=== PATIENT | female | born 1965 | race Caucasian/White ===

== ENCOUNTER 2023-12-05 20:33 | Emergency (ER) | payer BC, SELFPAY ==
--- NOTE | ~2023-12-05 | XR_ITS ---
EXAMINATION: XR chest 2V DATE: 12/05/2023 21:55 INDICATION: Chest pain. Shortness of breath. Dizziness. TECHNIQUE: Frontal and lateral views of the chest were obtained. COMPARISON: CT abdomen 05/13/2005 FINDINGS: There is mild atelectasis in left lower lung zone. No pleural effusion or pneumothorax. The heart size is normal. IMPRESSION: 1. Mild atelectasis in left lower lung zone. Reviewed, dictated and finalized at location A.
--- NOTE | 2023-12-05 20:35 | ECG_ITS ---
Test Date: 2023-12-05 20:39:39 Measurements Intervals [place] Rate: 92 P: 33 UT: 158 QRS: 18 QRSD: 89 T: 37 QT: 346 QTc: 429 Interpretive Statements SINUS RHYTHM LOW QRS VOLTAGE IN PRECORDIAL LEADS [QRS DEFLECTION < 1.0 mV IN CHEST LEADS] OTHERWISE NORMAL ELECTROCARDIOGRAM No previous ECG available for comparison Electronically Signed On 12-07-2023 12:55:24 CDT by Chente Rodriguez M.D.
[2023-12-05 20:50] VITALS: BP 161/83; PULSE 81; RESP 20; TEMP 36.4; O2SAT 99
[2023-12-05 21:00] LABS: Basophils Percent Auto 0.5 % (0.2-1.2); Eosinophils Absolute Auto 0.1 K/mm3 (0-0.3); Eosinophils Percent Auto 1.2 % (0-4.4); Hematocrit 39.9 % (37.0-47.0); Hemoglobin 12.9 g/dL (12.0-15.0); Immature Granulocyte Absolute 0.02 K/mm3 (0.00-0.031); Immature Granulocyte Percent A 0.2 % (0-0.5); Lymphocytes Percent Auto 19.3 % (18.3-44.2); Mean Corpuscular HGB Conc 32.3 g/dl (32-36); Mean Corpuscular Hemoglobin 27.5 pg (26-34); Mean Corpuscular Volume 85.1 fl (80-100); Mean Platelet Volume 11.1 fl (7.4-10.4); Monocytes Absolute Auto 0.4 K/mm3 (0.1-0.6); Monocytes Percent Auto 5.1 % (2.6-8.5); Neutrophils Absolute Auto 6.1 K/mm3 (1.3-6.7); Neutrophils Percent Auto 73.7 % (45.5-73.1); Platelet Count Result 242 k/mm3 (150-375); Red Blood Count 4.69 M/mm3 (4.2-5.4); Red Cell Distribution Width 14.6 % (11.5-14.5); White Blood Count 8.3 K/mm3 (4.5-10.0)
[2023-12-05 21:10] LABS: Alanine Aminotransferase 17 U/L (6-35); Alkaline Phosphatase 91 U/L (38-126); Anion Gap 13 mmol/L (4-12); Aspartate Amino Transferase 18 U/L (14-36); Bilirubin,Total 0.9 mg/dL (0.2-1.3); Blood Urea Nitrogen 13 mg/dL (7-17); Calcium 9.2 mg/dL (8.4-10.2); Carbon Dioxide 24 mmol/L (22-30); Chloride 102 mmol/L (98-107); Estimated CRCL calculation 81 ml/min; Estimated Glomerular Filt Rate 58; Glucose 99 mg/dL (65-110); Lipase 59 U/L (23-300); Potassium 4.1 mmol/L (3.4-5.0); Sodium 139 mmol/L (137-145)
[2023-12-05 21:11] LABS: INR 1.1; Partial Thromboplastin Time 30.6 Seconds (22.3-36.8); Prothrombin Time 14.3 Seconds (11.1-14.7)
[2023-12-05 21:21] LABS: Troponin I < 0.012 ng/mL (0.000-0.034)
[2023-12-06 01:58] VITALS: BP 131/66; PULSE 85; RESP 16; TEMP 36.4; O2SAT 98
[2023-12-06] MEDS: ASPIRIN 81 MG CHEWABLE TABLET 324 MG PO (02:56)
[2023-12-06 03:25] LABS: Troponin I < 0.012 ng/mL (0.000-0.034)
--- NOTE | 2023-12-06 03:37 | ED.CHESTPAIN ---
HPI - Chest Pain General Chief Complaint: Chest Pain Stated Complaint: chest pain Time Seen by Provider: 12/06/23 02:19 History of Present Illness HPI narrative: Patient is a 57-year-old female who presents to the emergency department this evening complaining of chest pain that is been ongoing for the past 2 weeks. Patient has not noticed anything that brings on the pain. Denies any similar symptoms in the past denies any cardiac history. Denies any nausea or vomiting, admits to mild shortness of breath but denies any additional symptoms or concerns at this time. Related Data Home Medications Medication Instructions Recorded Confirmed doxycycline hyclate 100 mg capsule 100 mg PO DAILY 05/16/19 exenatide microspheres 2 mg/0.65 2 mg subcut WEEKLY 05/16/19 mL subcutaneous pen injector (Bydureon) furosemide 40 mg tablet 40 mg PO QAM 05/16/19 glimepiride 4 mg tablet 4 mg PO QAM 05/16/19 insulin lispro 100 unit/mL 10 unit subcut DAILY 05/16/19 subcutaneous pen (Humalog KwikPen (U-100) Insulin) lisinopril 40 mg tablet 40 mg PO DAILY 05/16/19 metformin 500 mg tablet 500 mg PO DAILY 05/16/19 pravastatin 40 mg tablet 40 mg PO DAILY 05/16/19 Allergies Allergy/AdvReac Type Severity Reaction Status Date / Time amoxicillin Allergy Unknown Rash Verified 12/05/23 20:34 Review of Systems Review of Systems: All systems are reviewed and are negative unless stated otherwise in the HPI. [facility] Past Medical History Medical History Diabetes High cholesterol Hypertension Surgical History Surgical History History of 2 sections 1989, 1993 History of cholecystectomy Social History Social History Smoking status: Former smoker Alcohol intake: never Exam Narrative: General: Alert, awake, afebrile, in no acute distress. HEENT: PERRL, no rhinorrhea, no post nasal drip, oropharynx clear. Cardiovascular: Regular rate and rhythm, no murmurs, rubs or gallops, no peripheral edema. Respiratory: Clear to auscultation bilaterally, no tachypnea, no wheezing, no rhonchi, no rubs, no respiratory distress. Abdomen: Soft, nontender, nondistended, no rebound, no guarding, no peritoneal signs. Musculoskeletal: No joint swelling or deformity, normal muscle tone. Skin: No rashes or petechia, no signs of infection. Neurological: Alert and oriented to person, place, and time. Follows all commands. No focal deficits, speech is clear and fluent. Course Vital Signs Vital signs: Vital Signs Temperature 97.5 F L 12/05/23 20:50 Pulse Rate 81 12/05/23 20:50 Respiratory Rate 20 12/05/23 20:50 Blood Pressure 161/83 H 12/05/23 20:50 Pulse Oximetry 99 12/05/23 20:50 Oxygen Delivery Room Air 12/05/23 20:50 Temperature 97.6 F 12/06/23 01:58 Pulse Rate 85 12/06/23 01:58 Respiratory Rate 16 12/06/23 01:58 Blood Pressure 131/66 12/06/23 01:58 Pulse Oximetry 98 12/06/23 01:58 Oxygen Delivery Room Air 12/05/23 20:50 MDM - Chest Pain MDM Narrative Medical decision making narrative: The patient was evaluated by myself in the emergency department. History is obtained from patient who is an independent historian and physical exam was performed. External medical records were reviewed at this time. IV was established and pertinent tests were ordered. EKG was obtained which revealed sinus rhythm at a rate of 80 beats per minute. No ST changes, T wave inversions or evidence of acute ischemia. EKG was independently interpreted by me and is currently pending official cardiology read. Laboratory results obtained revealing no acute process. Two sets of troponins were obtained and both noted to be negative. Imaging studies obtained included CXR which was independently interpreted by me revealing no acute process, wh
[2023-12-06 04:04] VITALS: BP 144/66; PULSE 67; RESP 15; O2SAT 99
== END 2023-12-06 04:05 | disposition home or self-care (01) ==
PROVIDERS: Emergency Provider Emergency Medicine; PCP Physician Assistant
DX: R07.9 Chest pain, unspecified (principal); I10 Essential (primary) hypertension; E11.9 Type 2 diabetes mellitus without complications; E78.00 Pure hypercholesterolemia, unspecified; Z90.49 Acquired absence of other specified parts of digestive tract; Z79.4 Long term (current) use of insulin; Z79.84 Long term (current) use of oral hypoglycemic drugs; Z79.899 Other long term (current) drug therapy; Z79.85 Long-term (current) use of injectable non-insulin antidiabetic drugs
CPT/HCPCS: 36415; 71046; 80053; 83690; 84484; 85025; 85610; 85730; 93005; 99284; A9270